=== PATIENT | female | born 1965 | race Caucasian/White ===

== ENCOUNTER → 2019-07-20 08:55 | Outpatient (CLI) | payer OTHER, SELFPAY ==
--- NOTE | ~2019-07-20 | MMUS_ITS ---
EXAMINATION: MM diagnostic jese BI w deann, US breast RT limited HISTORY: Diffuse cystic mastopathy, particularly of the subareolar right breast TECHNIQUE: Craniocaudal, mediolateral, and mediolateral oblique 3-D tomosynthesis images of the arleen ts were performed and synthetic 2-D images were generated. CAD analysis was submitted and interpreted . High resolution limited right breast ultrasound was performed. COMPARISON: 05/08/2018, 04/04/2017, 03/18/2016, 01/20/2015 BREAST PARENCHYMAL COMPOSITION: There are scattered areas of fibroglandular density. FINDINGS: MAMMOGRAPHIC FINDINGS: There is chronic and unchanged focal asymmetry in the subareolar aspect of the left breast. No mammog raphic correlate is identified for the reported subareolar right breast pain. There is no suspicious calcification or architectural distortion. ULTRASOUND: There is no evidence of focal abnormal solid or cystic lesion in the vicinity of the patient subareol ar right breast pain. IMPRESSION: 1. No specific mammographic or sonographic correlate is identified for the patient's subareolar right breast pain Further evaluation at this time should be based on clinical assessment. Continued follow -up physical examination is recommended. 2. Recommend routine screening mammography in one year. BI-RADS Category 2: Benign finding(s). Reviewed, dictated and finalized at location A. IO TECH IMPRESSION: 1. No specific mammographic or sonographic correlate is identified for the deisi ent's subareolar right breast pain Further evaluation at this time should be ba sed on clinical assessment. Continued follow-up physical examination is recomme nded. 2. Recommend routine screening mammography in one year. BI-RADS Category 2: Benign finding(s).
== END ==
PROVIDERS: PCP Family Medicine; Visit Provider Advanced Practice Midwife
DX: N60.11 Diffuse cystic mastopathy of right breast (principal)
CPT/HCPCS: 76642; 77062; 77066; G0279

== ENCOUNTER → 2019-07-20 09:00 | Outpatient (CLI) | payer OTHER, SELFPAY ==
--- NOTE | ~2019-07-20 | CT_ITS ---
EXAMINATION: CT lung screening EXAM DATE: 07/20/2019 09:18 INDICATION: Personal history of nicotine dependence. TECHNIQUE: Spiral low dose CT of the chest without contrast. Axial, coronal and sagittal images were reviewed. The dose-length product (DLP) for this examination was 76.47 mGy-cm. The exposure was ta ilored according to patient size (auto mA exposure control), and iterative reconstruction (ASIR) was used as additional dose reduction technique. There is no prior study for comparison. FINDINGS: The lungs are clear. Tracheobronchial tree is patent. There is no mediastinal, hilar o r axillary lymphadenopathy. There are no pleural or pericardial effusions. There is no pneumothor ax. Heart normal in size. No evidence of coronary arterial calcification. Upper abdomen is unrema rkable. Small sclerotic focus in T11 probably bone island. Bones are otherwise unremarkable. Mild emphysema. IMPRESSION: Lung-RADS category 1, negative (<1%chance of malignancy); recommend continued LDCT screen ing in 1 year. > Reviewed, dictated and finalized at location A. DER CHAIRMAN AND [employer]IE[employer]ATIVE OFFICER IMPRESSION: Lung-RADS category 1, negative (<1%chance of malignancy); recommend continued LDCT screening in 1 year. >
== END ==
PROVIDERS: PCP Family Medicine; Visit Provider Family Medicine
DX: Z12.2 Encounter for screening for malignant neoplasm of respiratory organs (principal); Z87.891 Personal history of nicotine dependence
CPT/HCPCS: G0297

== ENCOUNTER → 2020-10-10 10:13 | Outpatient (CLI) | payer OTHER, SELFPAY ==
--- NOTE | ~2020-10-10 | MM_ITS ---
EXAMINATION: MM screening [facility] BI w deann HISTORY: Screening mammogram TECHNIQUE: Craniocaudal and mediolateral oblique 3-D tomosynthesis images were obtained and synthetic 2-D images were generated. CAD analysis was submitted and interpreted. COMPARISON: 07/20/2019, 05/08/2018, 04/04/2017 BREAST PARENCHYMAL COMPOSITION: There are scattered areas of fibroglandular density. FINDINGS: Stable chronic focal asymmetry is present in the subareolar aspect of the left breast. Ther e is no evidence of suspicious mass, calcification, or architectural distortion to suggest malignancy in either breast. There has been no suspicious interval change. IMPRESSION: 1. No mammographic evidence of malignancy. 2. Recommend routine screening mammography in one year. BI-RADS Category 2: Benign finding(s). Reviewed, dictated and finalized at location A.
== END ==
PROVIDERS: PCP Family Medicine; Visit Provider Obstetrics & Gynecology
DX: Z12.31 Encounter for screening mammogram for malignant neoplasm of breast (principal)
CPT/HCPCS: 77063; 77067

== ENCOUNTER → 2020-10-10 10:14 | Outpatient (CLI) | payer OTHER, SELFPAY ==
--- NOTE | ~2020-10-10 | CT_ITS ---
EXAMINATION:CT lung screening DATE: 10/10/2020 10:39 INDICATION: Personal history of tobacco dependence. Smoker who quit 10 years ago with 40 pack year hi story. TECHNIQUE: Computed tomography (CT) of the chest was performed without intravenous contrast. Automate d exposure control and iterative reconstruction technique were employed. The dose-length product (DLP ) was 78.29 mGy-cm. COMPARISON: Chest CT 07/20/2019 FINDINGS: There is mild emphysema. There is stable mild scarring at the lung apices. No pleural effus ion. The heart size is normal. There are coronary artery calcifications. No pericardial effusion. The re is mild thoracic spondylosis. IMPRESSION: 1. Lung-RADS category 2: Benign appearance or behavior. Continue annual screening with noncontrast lo w-dose chest CT in 12 months. Reviewed, dictated and finalized at location B. IMPRESSION: 1. Lung-RADS category 2: Benign appearance or behavior. Continue annual screeni ng with noncontrast low-dose chest CT in 12 months.
== END ==
PROVIDERS: PCP Family Medicine; Visit Provider Family Medicine
DX: Z12.2 Encounter for screening for malignant neoplasm of respiratory organs (principal); Z87.891 Personal history of nicotine dependence; M47.894 Other spondylosis, thoracic region; J43.9 Emphysema, unspecified
CPT/HCPCS: 71271

== ENCOUNTER → 2022-01-25 09:36 | Outpatient (CLI) | payer OTHER, SELFPAY ==
--- NOTE | ~2022-01-25 | CT_ITS ---
EXAMINATION:CT lung screening DATE: 01/25/2022 10:26 INDICATION: Tobacco use. Current smoker with 30 pack year history. TECHNIQUE: Computed tomography (CT) of the chest was performed without intravenous contrast. Automate d exposure control and iterative reconstruction technique were employed. The dose-length product (DLP ) was 75.93 mGy-cm. COMPARISON: Chest CT 10/10/2020 FINDINGS: There is mild scarring at the lung apices. There is mild emphysema. There is minimal atelec tasis bilaterally. No pleural effusion. The heart size is normal. No pericardial effusion. There is m ild thoracic spondylosis. There is a benign bone island in T11 vertebral body. IMPRESSION: 1. Lung-RADS category 2: Benign appearance or behavior. Continue annual screening with noncontrast lo w-dose chest CT in 12 months. Reviewed, dictated and finalized at location A. IMPRESSION: 1. Lung-RADS category 2: Benign appearance or behavior. Continue annual screeni ng with noncontrast low-dose chest CT in 12 months.
== END ==
PROVIDERS: PCP Family Medicine; Visit Provider Family Medicine
DX: Z12.2 Encounter for screening for malignant neoplasm of respiratory organs (principal); Z87.891 Personal history of nicotine dependence
CPT/HCPCS: 71271

== ENCOUNTER → 2022-01-25 09:48 | Outpatient (CLI) | payer OTHER, SELFPAY ==
--- NOTE | ~2022-01-25 | MM_ITS ---
EXAMINATION: MM screening [facility]ese BI w deann HISTORY: Screening mammogram TECHNIQUE: Craniocaudal and mediolateral oblique 3-D tomosynthesis images were obtained and synthetic 2-D images were generated. CAD analysis was submitted and interpreted. COMPARISON: 10/10/2020, 07/20/2019, 05/08/2018 BREAST PARENCHYMAL COMPOSITION: There are scattered areas of fibroglandular density. FINDINGS: Again noted is stable, chronic focal asymmetry in the subareolar aspect of the left breast. There is no suspicious mass, calcification, or architectural distortion to suggest malignancy in eit her breast. There has been no suspicious interval change. IMPRESSION: 1. No mammographic evidence of malignancy. 2. Recommend routine screening mammography in one year. BI-RADS Category 2: Benign finding(s). Reviewed, dictated and finalized at location A.
== END ==
PROVIDERS: PCP Family Medicine; Visit Provider Obstetrics & Gynecology
DX: Z12.31 Encounter for screening mammogram for malignant neoplasm of breast (principal)
CPT/HCPCS: 77063; 77067

== ENCOUNTER 2022-03-22 00:55 | Day surgery (SDC) | payer OTHER, SELFPAY ==
[2022-03-05 11:37] VITALS: BMI 26.7
--- NOTE | 2022-03-19 12:48 | PM.HPGS ---
History of Present Illness History of Present Illness Consent: Risks, benefits, and alternatives have been discussed and questions answered. Patient agrees to proceed with procedure. Chief complaint: hx of colon polyps Narrative: Leyla Ferrell is a 57 year old female referred for colon cancer screening. She has a family history of colon cancer, her mother and she had a polyp removed about 5 years ago . Review of Systems Review of Systems: All systems reviewed & are unremarkable except as noted in HPI and below PMFSH Family History Family History Mother Carcinoma of colon Grandparent Family history of malignant neoplasm of breast Other Diabetes mellitus Family history of coronary artery disease Family history of elevated blood lipids Social History Social History Years smoked: 30 Smoking status: Former smoker Alcohol intake: current Drinks per week: 2 Substance use type: does not use Meds Home Medications and Allergies Home Medications Medication Instructions Recorded Confirmed Type No Home Medications 03/05/22 03/22/22 History Allergies Allergy/AdvReac Type Severity Reaction Status Date / Time codeine Allergy Unknown Unknown Verified 03/22/22 07:26 Penicillins Allergy Unknown Unknown Verified 03/22/22 07:26 Exam Const: General: alert Orientation/consciousness: patient oriented x3 Resp: Auscultation: clear to auscultation bilaterally Cardio: Rhythm: regular rhythm GI: GI Palp: Yes Soft to palpation and No Tenderness to palpation present (GI) Neuro: General: patient oriented x3 Assessment and Plan Assessment and plan (1) Colon cancer screening: Code(s): Z12.11 - Encounter for screening for malignant neoplasm of colon Status: Acute Assessment and Plan: Colonoscopy with possible biopsy or polypectomy or cautery or injection of substances.
[2022-03-22 07:27] VITALS: BP 115/69; PULSE 67; RESP 18; TEMP 36.6; O2SAT 100; BMI 26.7
[2022-03-22] MEDS: LACTATED RINGERS 1,000 ML 150 ML IV CONT (07:39)
--- NOTE | 2022-03-22 07:43 | P.PNAN_ITS ---
Anes - Initial Pre Proc Eval Procedure: Operation Date: 03/22/22 08:30 Proposed Procedures p Screening Colonoscopy - Jhonatan Jalloh MD Date/Time: 03/22/22 07:43 Surgeon: Jhonatan Jalloh MD Pre Op Diagnosis: hx of colon polyps Patient Data Age: 57 Gender: F Height: 1.65 m Weight: 73 kg Last Vital Signs Temp 97.9 F 03/22/22 07:27 Pulse 67 03/22/22 07:27 Resp 18 03/22/22 07:27 BP 115/69 03/22/22 07:27 Pulse Ox 100 03/22/22 07:27 O2 Del Method Room Air 03/22/22 07:27 Allergies Allergy/AdvReac Type Severity Reaction Status Date / Time codeine Allergy Unknown Unknown Verified 03/22/22 07:26 Penicillins Allergy Unknown Unknown Verified 03/22/22 07:26 Home Medications Medication Instructions Recorded Confirmed Type No Home Medications 03/05/22 03/22/22 History Patient hx anesthesia problems: none Family hx anesthesia problems: none Results Review: All pre-operative results and documents have been reviewed as part of the pre- operative evaluation. [facility] Family History Family History Mother Carcinoma of colon Grandparent Family history of malignant neoplasm of breast Other Diabetes mellitus Family history of coronary artery disease Family history of elevated blood lipids Social History Social History Years smoked: 30 Smoking status: Former smoker Alcohol intake: current Drinks per week: 2 Substance use type: does not use Anes - Eval Final PreProcedure Day of Procedure 03/22/22 07:43 Patient weight: normal Heart: regular rate and rhythm Lungs: clear to auscultation Airway: Mallampati scale class II Neurological: alert and oriented Last oral intake: >/= 8 hours ASA classification: II Emergent: no Anesthetic plan: proceed Anesthesia type and monitoring: general GIVS and standard monitoring Results Review: All pre-operative results and documents have been reviewed as part of the pre- operative evaluation. Informed Consent: The patient's anesthetic plan and its attendant risks and benefits were discussed with the patient/family/POA. Questions were solicited and answers provided to the satisfaction of the patient/family/POA.
[2022-03-22 08:38] VITALS: BP 96/62; PULSE 62; RESP 15; O2SAT 99
[2022-03-22 08:48] VITALS: BP 113/55; PULSE 60; RESP 21; O2SAT 99
[2022-03-22 08:58] VITALS: BP 94/61; PULSE 59; RESP 17; O2SAT 99
[2022-03-22] MEDS: ONDANSETRON INJ 4 MG/2 ML VIAL IV PUSH (08:59)
[2022-03-22 09:08] VITALS: BP 109/59; PULSE 63; RESP 22; O2SAT 99
== END 2022-03-22 09:16 | disposition home or self-care (01) ==
PROVIDERS: PCP Family Medicine; Visit Provider Internal Medicine Gastroenterology
PROC: 0DJD8ZZ Inspection of Lower Intestinal Tract, Via Natural or Artificial Opening Endoscopic (ICD-10-PCS; CPT 45378; principal; 2022-03-22 08:30)
DX: Z12.11 Encounter for screening for malignant neoplasm of colon (principal); K62.1 Rectal polyp; K57.30 Diverticulosis of large intestine without perforation or abscess without bleeding; Z80.0 Family history of malignant neoplasm of digestive organs; Z87.891 Personal history of nicotine dependence
CPT/HCPCS: 45380; 88305; J2405; J2704; J7120

== ENCOUNTER → 2023-04-08 13:10 | Outpatient (CLI) | payer OTHER, SELFPAY ==
--- NOTE | ~2023-04-08 | MM_ITS ---
EXAMINATION: MM screening [facility]ese BI w deann HISTORY: Screening TECHNIQUE: Craniocaudal and mediolateral oblique 3-D tomosynthesis images were obtained and synthetic 2-D images were generated. CAD analysis was submitted and interpreted. COMPARISON: Comparison to multiple prior studies sequentially, with oldest reviewed study dated 02/28. BREAST PARENCHYMAL COMPOSITION: There are scattered areas of fibroglandular density. FINDINGS: There is no evidence of suspicious mass, calcification, or architectural distortion to sugg est malignancy in either breast. There has been no suspicious interval change. IMPRESSION: 1. No mammographic evidence of malignancy. 2. Recommend routine screening mammography in one year. BI-RADS Category 1: Negative Reviewed, dictated and finalized at location A. EL WORKER
== END ==
PROVIDERS: PCP Obstetrics & Gynecology; Referring Provider Family Medicine; Visit Provider Physician Assistant
DX: Z12.31 Encounter for screening mammogram for malignant neoplasm of breast (principal)
CPT/HCPCS: 77063; 77067

== ENCOUNTER → 2023-04-08 13:21 | Outpatient (CLI) | payer OTHER, SELFPAY ==
--- NOTE | ~2023-04-08 | CT_ITS ---
CT Scan of the Chest without Contrast: Clinical Indication: Lung cancer screening, personal history of nicotine dependence Technique: Contiguous sections were acquired throughout the chest without intravenous contrast. Dose reduction technique was used on this scan by utilizing automated exposure control and iterative recon struction technique. The dose-length product (DLP) was 74.33 mGy-cm. COMPARISON: 01/25/2022, 10/10/2020 Findings: There is no evidence of any significant mediastinal, hilar or axillary lymphadenopathy. The mediastin al soft tissues appear normal. There is no evidence of pleural or pericardial effusion. The lungs are clear. No pulmonary nodules or infiltrates are noted. Images through the upper abdomen reveal no abnormalities. Impression: Lung RADS 1: Negative. 12 month follow-up screening CT advised. Reviewed, dictated and finalized at [facility]. RT CHECKER Impression: Lung RADS 1: Negative. 12 month follow-up screening CT advised.
== END ==
PROVIDERS: PCP Family Medicine; Visit Provider Family Medicine
DX: Z12.2 Encounter for screening for malignant neoplasm of respiratory organs (principal); Z87.891 Personal history of nicotine dependence
CPT/HCPCS: 71271

== ENCOUNTER → 2023-06-30 10:29 | Outpatient (CLI) | payer OTHER, SELFPAY ==
--- NOTE | ~2023-06-30 | DEXA_ITS ---
Bone Density Report Name: SESAR MARQUEZ Age: 58 Sex: Female Ethnicity: White Date of : 1965 Indication: postmenopausal; screening for osteoporosis; Referring Provider: Kalyani Monet Study: Bone densitometry was performed. Exam Date: June 30, 2023 Accession number: [id number] Bone Density: Region BMD T-score Z-score Classification AP Spine (L1-L4) 0.789 -2.3 -0.9 Osteopenia Femoral Neck (Left) 0.748 -0.9 0.4 Normal Total Hip (Left) 0.892 -0.4 0.6 Normal Femoral Neck (Right) 0.731 -1.1 0.2 Osteopenia Total Hip (Right) 0.889 -0.4 0.5 Normal Total Hip Mean 0.891 -0.4 0.6 Normal World Health Organization criteria for BMD impression classify patients as: Normal (T-score at or above -1.0), Osteopenia (T-score between -1.0 and -2.5), or Osteoporosis (T-score at or below -2.5). 10-year Fracture Risk(1): Major Osteoporotic Fracture 7.2% Hip Fracture 0.4% Reported Risk Factors: [place] (), Neck BMD=0.731, BMI=28.2 (1) FRAX(R) Version 3.08. Fracture probability calculated for an untreated patient. Fracture probability may be lower if the patient has received treatment. Clinical Information Provided by Patient: Has used the following medications: Vitamin D Patient maximum height was 65 Menopause Age: 45 No regular weight bearing exercise Drinks caffeinated beverages Onset of menses at age 12 Number of children 0 Missed period for more than 6 months in a row Impression: The patient has low bone mass, based on the Total Spine T-score. The patient has an estimated ten-year risk of hip fracture of 0.4% and an estimated ten-year risk of major fracture of 7.2%, based on the WHO FRAX algorithm. Discussion: BONE DENSITY IS LOW AT ONE OR MORE SKELETAL SITES. This patient's lowest T-score is low at one or more skeletal sites. It meets the World Health Organization's (WHO) criteria for ?low bone mass? (T-score between -1.0 and -2.5). The patient's 10-year risk of fracture as calculated by FRAX is less than the threshold where pharmacological therapy is recommended by the National Osteoporosis Foundation (NOF). However, all treatment decisions require clinical judgment and consideration of individual patient factors, including patient preferences, comorbidities, previous drug use, risk factors not captured in the FRAX model (e.g., frailty, falls, vitamin D deficiency, increased bone turnover, interval significant decline in bone density) and possible under or overestimation of fracture risk by FRAX. The patient should follow a healthful lifestyle (good nutrition with adequate calcium and vitamin D, and appropriate weight-bearing exercise). Follow-Up: Consider repeating this study in 2 to 3 years to reassess this patient's status, or sooner if there is some new clinical indication. Repor
== END ==
PROVIDERS: PCP Obstetrics & Gynecology; Visit Provider Obstetrics & Gynecology
DX: Z78.0 Asymptomatic menopausal state (principal); M85.88 Other specified disorders of bone density and structure, other site; M85.851 Other specified disorders of bone density and structure, right thigh
CPT/HCPCS: 77080

== ENCOUNTER 2024-04-18 11:30 | Outpatient (CLI) | payer OTHER, SELFPAY ==
--- NOTE | ~2024-04-18 | CT_ITS ---
EXAMINATION: CT lung screening DATE: 04/18/2024 11:49 INDICATION: Z87.891 - Personal history of nicotine dependence TECHNIQUE: Computed tomography (CT) of the chest was performed without intravenous contrast. Addition al 3D reconstructions utilizing coronal maximum intensity projection (MIP) were performed. Automated exposure control and iterative reconstruction technique were employed. The dose-length product was 75 .46 mGy-cm. COMPARISON: 04/08/2023 FINDINGS: Mild elevation of the left hemidiaphragm. There are couple unchanged <2 mm calcified nodules in the r ight lower lobe. No other suspicious pulmonary nodules, pneumonia, pulmonary edema or pleural effusio n. Heart size is normal. Minimal atherosclerotic coronary artery calcific location along the left ant erior descending coronary artery. No pericardial effusion. Thoracic aorta is normal in caliber. No pa thologically enlarged thoracic lymphadenopathy. Mild thoracic spondylosis. IMPRESSION: 1. Lung-RADS category 1: Negative. Continue annual screening with noncontrast low-dose chest CT in 12 months. Reviewed, dictated and finalized at location B. ECTOR TOOL IMPRESSION: 1. Lung-RADS category 1: Negative. Continue annual screening with noncontrast l ow-dose chest CT in 12 months.
== END 2024-04-18 11:31 | disposition home or self-care (01) ==
PROVIDERS: PCP Family Medicine; Visit Provider Student in an Organized Health Care Education/Training Program
DX: Z12.2 Encounter for screening for malignant neoplasm of respiratory organs (principal); Z87.891 Personal history of nicotine dependence
CPT/HCPCS: 71271

== ENCOUNTER 2024-04-18 11:36 | Outpatient (CLI) | payer OTHER, SELFPAY ==
--- NOTE | ~2024-04-18 | MM_ITS ---
EXAMINATION: MM screening [facility] BI w deann HISTORY: Screening mammogram TECHNIQUE: Craniocaudal and mediolateral oblique 3-D tomosynthesis images were obtained and synthetic 2-D images were generated. CAD analysis was submitted and interpreted. COMPARISON: 04/08/2023, 01/25/2022, 10/10/2020 BREAST PARENCHYMAL COMPOSITION:Not Dense. There are scattered areas of fibroglandular density. FINDINGS: No suspicious mass, calcification, or architectural distortion are identified in either tonie ast to suggest malignancy. There has been no suspicious interval change. IMPRESSION: No mammographic evidence of malignancy. Recommend routine screening mammography in one year. BI-RADS Category 1: Negative Reviewed, dictated and finalized at location . SEAT FITTER
== END 2024-04-18 11:37 | disposition home or self-care (01) ==
LOC: MICIMG 11:37
PROVIDERS: PCP Family Medicine; Visit Provider Obstetrics & Gynecology
DX: Z12.31 Encounter for screening mammogram for malignant neoplasm of breast (principal)
CPT/HCPCS: 77063; 77067

== ENCOUNTER 2025-05-01 14:11 | Outpatient (CLI) | payer BC, SELFPAY ==
--- NOTE | ~2025-05-01 | MM_ITS ---
EXAMINATION: MM screening jese BI w deann HISTORY: Screening TECHNIQUE: Craniocaudal and mediolateral oblique 3-D tomosynthesis images were obtained and synthetic 2-D images were generated. CAD analysis was submitted and interpreted. COMPARISON: Comparison to multiple prior studies sequentially, with oldest reviewed study dated 05/08/2018. BREAST PARENCHYMAL COMPOSITION: Not dense: There are scattered areas of fibroglandular density. FINDINGS: There is no evidence of suspicious mass, calcification, or architectural distortion to suggest malignancy in either breast. There has been no suspicious interval change. IMPRESSION: 1. No mammographic evidence of malignancy. 2. Recommend routine screening mammography in one year. BI-RADS Category 1: Negative Reviewed, dictated and finalized at location I. [employer]
--- OUTSIDE RECORDS SUMMARY | 2025-05-01 15:30 | XMS_ITS ---
11:19:42 Maternal Grandfather Heart disease [email or web address] Not available 2023 14:23:09 Brother Hypertensive disorder [email or web address] Not available 2023 14:23:09 Brother Heart disease Not available 2023 14:23:09 Brother Myocardial infarction 62 [email or web address] Not available 04/08 14:31:09 Medical History Condition Response Allergies (Food, seasonal, environmental ) N Other N Breast Cancer N Drug/Latex Allergies/Reactions N Blood Transfusion N Lung Disease N Dermatologic Disorders N Defects or Inherited Disease N Breast Problem N Gestational Diabetes N Hematologic disorders N Anesthesia Complications N History of STI N Deep Vein Thrombosis N Polycystic ovary syndrome N Anxiety Disorder N Autoimmune disease Y Arthritis N Infertility N Polyps N Acid Reflux (GERD) N History of abnormal pap N Cancer N Stroke N Varicosities N Neurologic/Epilepsy N Endometriosis N High Cholesterol N Headaches N Fibromyalgia N Kidney Disease N Heart Problems N Kidney or Bladder Problems N Thyroid Problems N GI Problems N Eating Disorder N Anemia N Art (IVF or FET) N Psychiatric Illness N Ovarian Cancer N Diabetes N Pulmonary (TB, Asthma) N Hepatitis/Liver Disease N No Past Medical History Y Eczema N Urinary Tract Infection N Abuse/Domestic Violence N Asthma N Trauma/Violence N Depression/ depression N Heart Disease N Pre-Eclampsia N Hypertension N Osteoporosis N Thrombophilias N Gynecological History Statement/Question Response Abnormal Pap N Date of Last Mammogram 04/18/2024 N STIs/STDs N Was last menstrual period normal Y HPV Vaccine N Current Control Method None Date of Last Colonoscopy 03/20/2022 Sexually Active? N Date of DEXA bone scan 06/30/2023 Age of first menstrual cycle 11 Date of Last Pap Smear 01/05/2022 Sexual Problems? N Desired Control Method None 03/20/2022 N Obstetrics History GPAL:G 0 P 0 0 0 0 Past Encounters Encounter ID Performer Location Encounter Start Date Encounter Closed Date Diagnosis/Indication Diagnosis SNOMED-CT Code Diagnosis ICD10 Code Diagnosis IMO Codes Diagnosis Note [id number] MD Chele Patterson [address] [address] 10/10/2020 10:16:55 10/10/2020 11:14:50 Gynecologic examination [id number] Z01.419 [id number] MD Chele Zhong [address],[place] [address] 01/25/2022 09:26:12 01/25/2022 10:22:00 Gynecologic examination 10436775 Z01.419 Annual gynecologi michele exam performed. Patient will come back in a year unless there are new symptoms. Suggest Calcium with Vitamin D if not eating in diet. Patient advised to get annual flu shot. Recommend yearly physicals and preform monthly breast exams. Genetic testing is available for patients with family history of cancer. Engage in safe sexual practices, use condoms. Encouraged to have daily exercise. Avoid tobacco and illicit drugs, moderation of alcohol. If BMI greater than 25 dietary consult advised. If you have any questions please call or email. Mammogram - done Colonoscop y - done Bone Density - na Cholestero l - done Pap - today [id number] Kalyani Monet MD [facility] [address],[place] [address] 02/11/2023 11:25:00 02/11/2023 12:29:54 Gynecologic examination [id number] Z01.419 Atrophy of vagina 261911 009 N95.2 [id number] MARTY ESPINOZA MD [facility] [address],[place] [address] 04/18/2024 14:07:32 04/18/2024 14:57:19 Gynecologic examination [id number] Z01.419 [facility]- Cervical cancer screening: Pap smear not indicated (next 2024)- Breast cancer screening: mammogram completed- HPV immunizati on: does not qualify- STD testing: declined- hereditary cancer screening: does not qualify for testing [id number] ASTON SAMSON NP [facility] [address],[place] [address] 04/08/2025 14:17:55 04/08/2025 14:50:46 Gynecologic examination [id number] Z01.419 Annual gynecologi michele exam performed. Patient will come back in a year unless there are new symptoms. Suggest Calcium with Vitamin D if not eating in diet. Patient advised to get annual flu shot. Recommend yearly physicals and perform monthly breast exams. Genetic testing is available for patients with family history of cancer. Engage in safe sexual practices, use condoms. Encouraged to have daily exercise. Avoid tobacco and illicit drugs, moderation of alcohol. If BMI greater than 25 dietary consult advised. If you have any questions please call or email. mammogram- ordered; pt to schedule colon cancer screening - UTD PCP DEXA scan- UTD PCP Pap smear- pap w/ HPV collected laboratory evaluation - PCP STI testing - declined Screening mammography 24 227715 Z12.31 [id number] Atrophy of vagina 313092 009 N95.2 Reports significan t improvemen t in vaginal dryness since using estradiol cream. Risks/bene fits reviewed.R efills sent x one year. Health Concerns Section Related Observation LastModified by Organization Detai ls LastModified Time None Recorded Concern Status LastModified by Organization Details LastModified Time None Recorded Advance Directives Directive None Recorded Payers Insurance Date Sequence Insurance Name Policy Number Policy Peter Covered Member ID Peter Member ID Guarantor Name 03/14/2025 1 [employer] ([place]) [id number] Leyla Ferrell [id number] Leyla Ferrell 04/06/2025 1 [id number] [id number] Leyla Ferrell [id number] Leyla Ferrell Notes Date Note Type Note Provider Name and Address Organization Details Recorded Time 10/11/19 21 text/htm l Patient is a 55yo G0 who presents for an annual exam. Menopause, no bleeding. Former smoker. Gets yearly CT scan. last pap-06/2019 [facility] mammo-06/2019 [id number] years ago, q 5 for FH dexa-none menopause-y sexually active-no seatbelts-y exercise-y daily depression-denies domestic violence-denies tobacco-former, quit 2008 concerns-none Kalyani Monet MD [address], [place], [address], [place] - [facility] 10/10/2020 11:03:43 01/26/20 22 text/htm l Annual GYNReported by PatientHistoryFor history, patient reportsno gynecologic complaints.Genitourinary symptomsFor urinary symptoms, patient reportsno hematuriaandno incontinence. For vulva, patient reportsno genital lesion(inclusion cyst). For vagina, patient reportsnormal vaginal discharge. For menstrual cycle, (none).Breast symptomsFor breast, patient reportsno breast pain,no breast lump, andno nipple discharge.Endocrine symptomsFor menopausal symptoms, patient reportsno menopausal symptomsandnormal vaginal lubrication. For sexual complaints, (none).Psychological symptomsFor psychological symptoms, patient reportsno depressionandno anxiety.Preventative measuresFor preventive measures, patient reportsencourage self breast examinationandencourage regular exercise. Mert Cavanaugh MD [address], [place], [address], [facility] 01/25/2022 10:14:36 02/12/20 23 text/htm l Patient is a 58yo G0 who presents for an annual exam. Not sexually active. Pelvic exams getting more and more uncomfortable. A little dryness but usually no sx otherwise. no bleeding. last pap-12/2021 mammo-12/2021 colonoscopy-2021, q 5 years for family history dexa-none menopause-yes sexually active-no seatbelts-y exercise-y depression-denies domestic violence-denies tobacco-quit in 2008 concerns-n Kalyani Monet MD [address], [place], [address], [facility] 02/11/2023 12:12:04 04/18/20 24 text/htm hope Presents today for her annual well-woman exam. Denies abnormal vaginal discharge. She is sexually active and denies dyspareunia. She has not noticed any changes or masses in her breasts. Up to date on mammograms. Menopausal, no PMB. No hx of abnormal pap smears. MARTY ESPINOZA MD [address], [place], [address], [facility] 04/18/2024 14:57:06 04/08/20 25 text/htm l Annual [employer] Post-MenopausalReported by PatientGenitourinary symptomsFor menopausal symptoms, patient reportsno menopausal symptomsandnormal vaginal lubrication. For vaginal bleeding, patient reportshistory of menopause having occurredandno history of post menopausal bleeding. For urinary symptoms, patient reportsno hematuria,no incontinence,no nocturia, andno urinary frequency. For vulva, patient reportsno genital lesionandno vulvar atrophy. For vagina, patient reportsnormal vaginal dischargeandno vaginal atrophy.Breast symptomsFor breast, patient reportsno breast lump,no nipple discharge, andno breast pain.Psychological symptomsFor sexual complaints, patient reportsno sexual complaints. For psychological symptoms, patient reportsno depressionandno anxiety.Preventative measuresFor preventive measures, patient reportsencourage regular mammograms starting age 40,encourage self breast examination,encourage regular exercise, andencourage no tobacco use. Patient presents for annual well woman exam. Patient denies concerns today. Deandra [email or web address] [facility] 04/08/2025 14:50:14 OBGyn Episode No OBEpisode recorded.
--- OUTSIDE RECORDS SUMMARY | 2025-05-01 15:30 | XMS_ITS | Continuity of Care Document ---
Author Organization [facility] Address [address] [place] [address] Care Team Providers Care Stripping Machine Operator Name Role Phone VIRGILIO HERNANDEZIA Primary Care Provider Assessment Encounter Date Assessment Date Assessment LastModified by Organization Details LastModified Time 04/08/2025 04/08/2025 Annual gynecological exam performed. Patient will come back in a year unless there are new symptoms. [email or web address] Not available 04/08/2025 14:21:54 Plan of Treatment Reminders Order Date Submit Date Provider Last Modified By Organization Details Last Modified Time Details Appointments None recorded. Lab pap, IG + HR HPV - HPV regardless but if HPV is positive need subtyping 16,18/45 2024 025 [facility] (Lab), [address] [place], [address], 5 14:34:10 Referral None recorded. Procedures None recorded. Surgeries None recorded. Imaging MAMMO, screening, digital, bilateral 2024 025 [facility] (Imaging), [address] [place], [address], 5 04:07:57 Medication Orders estradiol 0.01% (0.1 mg/gram) vaginal cream 2024 025 [facility] [id number] In [facility], [address] [place], [address], 14:48:02 Patient TargetsNo targets recorded. Patient InstructionsNo instructions recorded. Reason for Referral None Reported. Results Created Date Observation Date Name Description Value Unit Range Abnormal Flag Note LastModifiedBy Organization Detail LastModifiedTime 04/08/20 25 04/08/2025 IMAGE GUIDE D PAP AND HPV REGAR DLESS image guided Pap, HPV regardless of Pap result SEE RESULT S BELOW CASE REPOR T: Cytol ogy Gynec ologi michele Repor t Case: [id number] Autho yran hammond Provi brandee: Dermo dy, Sakshi , ANP, FIBRE OPTIC CABLE SPLICER Colle cted: 04/08 1549 Order ing Locat ion: [place] [facility] Recei deepak: 04/09 0747 First Scree n: Jennifer Muniz CT Speci men: Tata llanes Pap - Image d, Cervi x STATE MENT OF ADEQU ACY: Satis facto ry for evalu ation Trans forma tion zone compo nent prese nt ----- ----- ----- ----- ----- ----- ----- ----- ----- ----- ----- ----- ----- ----- ----- ----- ----- ---- FINAL DIAGN OSIS: Negat veronica for Intra epith elial Ngoc payne or Lori rose (NIL) . Elect osvaldo garsia by Jennifer Muniz , CT on 04/11 at 1327 INSPECTOR METAL FABRICATING ----- ----- ----- ----- ----- ----- ----- ----- ----- ----- ----- ----- ----- ----- ----- ----- ----- ---- HPV RESUL TS: HPV mRNA E6/E7 : No HPV mRNA Detec janay NOTE: This high risk HPV mRNA assay detec ts fourt een high- risk HPV types (16, 18, 31, 33, 35, 39, 45, 51, 52, 56, 58, 59, 66, 68) witho ut diffe renti ation . COMME NT: This speci men was revie wed by a Cytot echno logis t and/o r Patho logis t (as indic ated in this repor t) after evalu ation using the Thinp rep Imagi ng Syste m. CLINI MICHELE INFOR MATIO N: Menst rual Statu s: LMP (if appli cable ): Clini michele Histo ry/Pr eviou s Pap: Type of Neopl winnie (if appli cable ): Signi fican t Clini michele Findi ngs: Other Histo ry: Hormo charlotte (if appli cable ): PAP EDUCA GANESH L NOTE: The Pap Test is a scree shraddha test with an inher ent false negat veronica rate. Liqui d-bas ed sampl ing may decre ase, but will not elimi jessica, false negat veronica resul ts. A negat veronica resul t does not precl ude the prese nce and/o r devel opmen t of disea se, since the prese nce of abnor mal cells in the sampl e depen ds on the locat ion of the lesio n and sampl ing techn ique. Heather nued regul ar scree shraddha is the best metho d of cance r preve ntion . If repor janay cytol ogic findi ng do not corre late with physi michele and/o r histo rical findi ngs, furth er inves tigat ion is recom prosper d, as clini vish schultz nted. Not Available [facility] (Lab) [address] [facility], [place], [address], 04/11/2025 14:34:10 Result Notes None recorded. Problems Name Problem SNOMED Code Status Onset Date Resolution Date Notes Provider Name and Address Organization Details Recorded Time Screenin g for malignan t neoplasm of cervix Completed 201310/10/2020 Screenin g for malignan t neoplasm s of the cervix;R ecorded Elsewher e: No Locat ion: Beverly calderón [facility] S ource: EHR Industrial Manufacturing Technician kelly: N Practi ce ID: [id number] Jr lable Time: 05:30:00 PM Kalyani Monet MD [address], [place], [address], [facility] 1 10:48:32 Urinary tract infectio us disease [id number] Completed 201310/10/2020 Urinary tract infectio n, site not specifie d;Doti ce ID: 0001 Kalyani Monet MD [address], [place], [address], [facility] 1 10:48:42 Speciali zed medical examinat ion Completed 201410/10/2020 Gynecolo gical Examinat ion;Ab rded Elsewher e: No Locat ion: [facility] S ource: EHR Industrial Manufacturing Technician kelly: N Doti ce ID: [id number] Jr lable Time: 01:00:00 PM Kalyani Monet MD [address], [place], [address], [facility] 1 10:48:40 Adult health examinat ion Completed 201410/10/2020 ROUTINE MEDICAL EXAM;Rec orded Elsewher e: No Locat ion: [facility] S ource: EHR Industrial Manufacturing Technician kelly: N Doti ce ID: [id number] Jr lable Time: 01:00:00 PM Kalyani Monet MD [address], [place], [address], [facility] 1 10:48:12 Postmeno pausal bleeding [id number] Active 2015 Postmeno pausal bleeding ;Recorde d Elsewher e: No Locat ion: [facility] S ource: EHR Industrial Manufacturing Technician kelly: N Practi ce ID: [id number] Jr lable Time: 08:30:00 AM Not Available [facility] 0 18:38:14 Blood leukocyt e number above referenc e range [id number] Completed 201610/10/2020 Elevated white blood cell count, unspecif ied;Ab rded Elsewher e: No Locat ion: [facility] S ource: EHR Industrial Manufacturing Technician kelly: N Practi ce ID: [id number] Jr lable Time: 02:00:00 PM Kalyani Monet MD [address], [place], [address], [facility] 10:48:[address] Concept Completed 201610/10/2020 Encounte r for general adult medical exam w abnormal findings ;Practic e ID: 0001 Kalyani Monet MD [address], [place], [address], [facility] 10:48:22 Screenin g for malignan t neoplasm of rectum Completed 201710/10/2020 Encounte r for screenin g for malignan t neoplasm of rectum;P ractice ID: 0001 Kalyani Monet MD [address], [place], [address], [facility] 10:48:[address] Concept Completed 201910/10/2020 Encntr for general adult medical exam w/o abnormal findings ;Practic e ID: 0001 Kalyani Monet MD [address], [place], [address], [facility] 10:48:[address] Concept Completed 201910/10/2020 Encntr for painter rough exam (general ) (routine ) w/o abn findings ;Practic e ID: 0001 Kalyani Monet MD [address], [place], [address], [facility] 10:48:38 Breast lump [id number] Completed 201910/10/2020 Unspecif ied lump in unspecif ied breast;R ecorded Elsewher e: No Locat ion: [facility] S ource: EHR Industrial Manufacturing Technician kelly: N Practi ce ID: [id number] Jr lable Time: 12:14:12 PM Kalyani Monet MD [address], [place], [address], [facility] 1 10:48:16 Breast lump Active 2019 Diffuse cystic mastopat hy of right breast;P ractice ID: 0001 Not Available [facility] 0 18:38:13 Problem Notes None recorded. Procedures Surgical History Date Name Laterality Status Provider Name and Address Organization Details Recorded Time 4 Date of Last Mammogram completed Deandra Lira [facility] 04/08/2025 14:23:32 2 Date of Last Colonoscopy completed [facility] 04/18/2024 14:23:10 2 completed [facility] 04/18/2024 14:23:10 2 Date of Last Pap Smear completed Anika Farah [facility] 02/11/2023 11:30:05 Colonoscopy completed [facility] 04/18/2024 14:23:10 Imaging Results None recorded. Procedure Notes None recorded. Medical Equipment None Reported. Allergies Allergen ID Allergen Name Allergen Category Reaction Reaction Severity Criticality Documentation Date Start Date Code Code System Note Provider Name and Address Organization Details Recorded Time 36178 codeine medicatio n Not available Not available Not available 05/16/2020 2670 RxNorm Comme nt: [facility]at [facility]; Not Available [facility] 0 14:20:48 17830 Product containin g penicilli n (product) medicatio n Not available Not available Not available 05/16/2020 60613 8001 SNOMED Comme nt: [facility]; Not Available [facility] 0 14:20:48 Medications Name Sig Start Date Stop Date Status Note LastModified by Organization Details LastModified Time azithromy christina 250 mg tablet TAKE 2 TABLETS BY MOUTH TODAY, THEN TAKE 1 TABLET DAILY FOR 4 DAYS 02/11 completed Not Available Not Available Not Available vitamin E 100 unit capsule 03/31 completed Prescrib ed Elsewher e: Yes Loca tion: Beverly calderón [facility] odify By: mitchell bronson DateTime : 08/15/19 13 10:30:00 AM Not Available Not Available Not Available clobetaso l 0.05 % topical cream APPLY EVERY DAY NEEDED FOR RASH active Not Available Not Available No t Available Glucosami ne 500 mg tablet 03/31 completed Prescrib ed Elsewher e: Yes Loca tion: Beverly calderón [facility] odify By: mitchell parruntjason DateTime : 01/21/20 15 01:00:00 PM Not Available Not Available Not Available garlic capsule 04/08 completed Prescrib ed Elsewher e: Yes Loca tion: Andreas kaitlynn [facility] odify By: oj pacheco DateTime : 08/15/19 13 10:30:00 AM Not Available Not Available Not Available estradiol 0.01% (0.1 mg/gram) vaginal cream Apply grape sized amount to introitu s and vagina with clean finger nightly for 30 days then three times per week. 2024 active Not Available Not Available Not Avai lable Vitamin D2 1,250 mcg (50,000 unit) capsule take 1 capsule by oral route every week 04/08 completed Prescrib ed Elsewher e: Yes Loca tion: Beverly calderón [facility] odify By: mitchell bronson DateTime : 03/31/20 16 08:30:00 AM Not Available Not Available Not Available multivita min capsule take 1 capsule by oral route every day 04/08 completed Prescrib ed Elsewher e: Yes Loca tion: Beverly calderón [facility] odify By: mitchell bronson DateTime : 03/31/20 16 08:30:00 AM Not Available Not Available Not Available Vitamin C 500 mg capsule,e xtended release 04/08 completed Prescrib ed Elsewher e: Yes Loca tion: Beverly calderón [facility] odify By: oj pacheco DateTime : 08/15/19 13 10:30:00 AM Not Available Not Available Not Available zinc 02/11 completed Not Available Not Available Not Available tristian rogel-vitami n D3 04/08 completed Not Available Not Available Not Available calcium 500 mg (as carbonate )-vitamin D3 3.125 mcg (125 unit) tablet active Not Available Not Available Not Available B-12 Plus 5,000 mcg-100 mcg sublingua l tablet 04/08 completed Prescrib ed Elsewher e: Yes Loca tion: Beverly [facility] odify By: oj pacheco DateTime : 08/15/19 13 10:30:00 AM Not Available Not Available Not Available Fish Oil 100 mg-160 mg-1,000 mg capsule 12/12 completed Prescrib ed Elsewher e: Yes Loca tion: [facility] odify By: fay bronson DateTime : 08/15/19 13 10:30:00 AM Not Available Not Available Not Available turmeric (bulk) 100 % powder 04/08 completed Prescrib ed Elsewher e: Yes Loca tion: [facility] odify By: mitchell bronson DateTime : 03/31/20 16 08:30:00 AM Not Available Not Available Not Available biotin 1 mg capsule active Not Available Not Available Not Available Vitals Date Recorded Body height Body mass index (BMI) Body weight Systolic And Diastolic Provider Name and Address Organization Details Last Updated DateTime 04/08/2025 165.1 cm 28.4 kg/m2 48381.58 g 106/69 mm[Hg] Deandra Erazoton [facility] 04/08/2025 14:30:06 Social History Question Answer Notes LastModified by Organizat ion Details LastModified Time Tobacco Smoking Status Former Smoker Katarina Phuong [email or web address] [facility] 01/25/2022 09:42:20 Are You Blind Or Do You Have Difficulty Seeing? No [email or web address] Information n ot available 04/18/2024 What Is Your Level Of Caffeine Consumption? Moderate [email or web address] Information not available 04/18/2024 How Much Tobacco Do You Chew? None [email or web address] Information not available 04/18/2024 In The 14 Days Before Symptom Onset, Have You Had Close Contact With A Laboratory-confirm ed COVID-19 While That Case Was Ill? No [email or web address] Information n ot available 04/18/2024 In The 14 Days Before Symptom Onset, Have You Had Close Contact With A Person Who Is Under Investigation For COVID-19 While That Person Was Ill? No [email or web address] Information not available 04/18/2024 Have You Been To An Area Known To Be High Risk For COVID-19? No [email or web address] Information not available 04/18/2024 Are You Deaf Or Do You Have Serious Difficulty Hearing? No [email or web address] Information not available 04/18/2024 What Type Of Diet Are You Following? REGULAR Information n ot available 04/18/2024 What Is The Highest Grade Or Level Of School You Have Completed Or The Highest Degree You Have Received? [id number] [email or web address] Information not available 04/18/2024 When Did You Quit Smoking? 11-13yearssin celastcigaret te 2008 Information not available 01/25/2022 Are There Any Guns Present In Your Home? Yes [email or web address] Information not available 04/18/2024 Do You Use Protection During Sex? No [email or web address] Information not available 04/18/2024 Do You Use Your Seat Belt Or Car Seat Routinely? Yes [email or web address] Information not available 04/18/2024 Do You Have Smoke And Carbon Monoxide Detectors In Your Home? Yes [email or web address] Information not available 04/18/2024 How Much Tobacco Do You Smoke? No [email or web address] Information not available 04/18/2024 Do You Use Sunscreen Routinely? Yes [email or web address] Information not available 04/18/2024 Have You Used IV Drugs? No Information not available 04/18/2024 Sex: Unknown Functional Status Question Answer Note LastModified by Organizat ion Details LastModified Time Do you use any illicit or recreational drugs? No [email or web address] Information not available 04/18/2024 What is your level of alcohol consumption? Occasional [email or web address] Information not available 04/18/2024 Are you able to walk independently without assistance or assistive devices? 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 Moderate [email or web address] Information not available 04/18/2024 Mental Status Question Answer Note LastModified by Organization D etails LastModified Time Do you feel stressed (tense, restless, nervous, or anxious, or unable to sleep at night)? KB5827-0 [email or web address] Information not available 04/18/2024 Family History Relationship Description Onset Age of this Age Resolved Age Notes LastModified by Organization Details LastModified Time Mother Anemia Not available 01/23/2022 11:18:10 Mother Malignant neoplasm of colon [email or web address] Not available 03/30 14:19:20 Mother Disease of liver [email or web address] Not available 03/30 14:19:20 Father Diabetes mellitus [email or web address] Not available 2021 11:18:30 Father Hyperlipidem ia [email or web address] Not available 03/30 14:19:20 Father Leukemia [email or web address] Not availa ble 04/08/2025 14:19:20 Paternal Grandmother Malignant neoplasm of breast [email or web address] Not available 03/30 14:19:20 Paternal Grandmother Diabetes mellitus [email or web address] Not available 2021 11:19:50 Paternal Grandmother Disorder of thyroid gland [email or web address] Not available 2021 11:21:09 Maternal Grandmother Diabetes mellitus [email or web address] Not available 2021 11:19:17 Maternal Grandmother Hypertensive disorder [email or web address] Not available 2021 11:19:35 Maternal Grandfather Diabetes mellitus [email or web address] Not available 2021 11:19:42 Maternal Grandfather Heart disease [email or web address] Not available 2023 14:23:09 Brother Hypertensive disorder [email or web address] Not available 2023 14:23:09 Brother Heart disease Not available 2023 14:23:09 Brother Myocardial infarction 62 [email or web address] Not available 04/08 14:31:09 Medical History Condition Response Allergies (Food, seasonal, environmental ) N Other N Breast Cancer N Drug/Latex Allergies/Reactions N Blood Transfusion N Dermatologic Disorders N Lung Disease N Defects or Inherited Disease N Breast [...] ICD10 Code Diagnosis IMO Codes Diagnosis Note [id number] SAKSHI SAMSON NP [place] [address] [address] 04/08/2025 14:17:55 04/08/2025 14:50:46 Gynecologic examination 08656080 Z01.419 Annual gynecologi michele exam performed. Patient [...] STI testing - declined Screening mammography 24 612595 Z12.31 [id number] Atrophy of vagina 446529 009 N95.2 Reports significan t improvemen t in vaginal dryness since using estradiol cream. Risks/bene fits reviewed.R efills sent x one year. Health Concerns Section Related Observation LastModified by Organization Detai ls LastModified Time None Recorded Concern Status LastModified by Organization Details LastModified Time None Recorded Payers Encounter Date Sequence Insurance Name Policy Number Policy Peter Covered Member ID Peter Member ID Guarantor Name 04/08/2025 1 [employer] [id number] Leyla Ferrell [id number] Leyla Ferrell Notes Date Note Type Note Provider Name and Address Organization Details Recorded Time 5 text/html Annual Corporate Operations Compliance Manager Post-MenopausalReported by PatientGenitourinary symptomsFor menopausal symptoms, patient [...] exam. Patient denies concerns today. Deandra ruvalcaba [facility] 04/08/2025 14:50:14 OBGyn Episode No OBEpisode recorded.
== END 2025-05-01 14:12 | disposition home or self-care (01) ==
PROVIDERS: PCP Family Medicine; Visit Provider Obstetrics & Gynecology Gynecology
DX: Z12.31 Encounter for screening mammogram for malignant neoplasm of breast (principal)
CPT/HCPCS: 77063; 77067